=== PATIENT | female | born 1955 | race Caucasian/White ===

== ENCOUNTER 2018-01-31 14:19 | Outpatient (RCR) | payer SELFPAY | END 2018-02-06 | disposition home or self-care (01) | LOC: CR3 14:19 | PROVIDERS: ATTEND Registered Nurse | DX: Z29.8 Encounter for other specified prophylactic measures (principal) ==

== ENCOUNTER → 2021-01-27 | Outpatient (REF) ==
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
== END ==
LOC: OCC 10:20
PROVIDERS: ATTEND Family Medicine
DX: M54.9 Dorsalgia, unspecified (principal)
CPT/HCPCS: 72040; 72070; 72100; 73030

== ENCOUNTER → 2021-02-26 | Outpatient (REF) ==
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
== END ==
LOC: OCC 10:09
PROVIDERS: ATTEND Nurse Practitioner Family
DX: M25.552 Pain in left hip (principal); M25.551 Pain in right hip
CPT/HCPCS: 73523

== ENCOUNTER 2021-05-01 10:34 | Outpatient (RCR) | payer OTHER | END 2021-05-05 | disposition home or self-care (01) | PROVIDERS: ATTEND Family Medicine | DX: M54.2 Cervicalgia (principal); M54.50 Low back pain, unspecified; M54.6 Pain in thoracic spine; V89.2XXA Person injured in unspecified motor-vehicle accident, traffic, initial encounter ==

== ENCOUNTER 2021-05-20 11:30 | Outpatient (RCR) | payer OTHER | END 2021-06-04 16:05 | disposition home or self-care (01) | PROVIDERS: ATTEND Family Medicine | DX: M54.2 Cervicalgia (principal); M54.6 Pain in thoracic spine; M54.50 Low back pain, unspecified; V89.2XXA Person injured in unspecified motor-vehicle accident, traffic, initial encounter ==

== ENCOUNTER → 2021-06-19 | Outpatient (CLI) | payer OTHER ==
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
== END ==
LOC: RAD 08:45
PROVIDERS: ATTEND Physical Medicine & Rehabilitation
DX: M47.812 Spondylosis without myelopathy or radiculopathy, cervical region (principal); M50.223 Other cervical disc displacement at C6-C7 level; M48.02 Spinal stenosis, cervical region; M43.12 Spondylolisthesis, cervical region
CPT/HCPCS: 72141

== ENCOUNTER → 2021-06-20 | Outpatient (CLI) | payer BC ==
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
== END ==
LOC: RAD 08:24
PROVIDERS: ATTEND Urology
DX: R10.9 Unspecified abdominal pain (principal)
CPT/HCPCS: 74176

== ENCOUNTER → 2021-06-20 | Outpatient (CLI) | payer OTHER ==
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
== END ==
LOC: RAD 09:30
PROVIDERS: ATTEND Physical Medicine & Rehabilitation
DX: M47.814 Spondylosis without myelopathy or radiculopathy, thoracic region (principal); M47.816 Spondylosis without myelopathy or radiculopathy, lumbar region; M47.817 Spondylosis without myelopathy or radiculopathy, lumbosacral region; M51.26 Other intervertebral disc displacement, lumbar region; M51.27 Other intervertebral disc displacement, lumbosacral region; M48.061 Spinal stenosis, lumbar region without neurogenic claudication; M48.02 Spinal stenosis, cervical region
CPT/HCPCS: 72146; 72148

== ENCOUNTER 2022-12-02 10:00 | Outpatient (RCR) | payer MEDICARE | END 2022-12-05 | disposition home or self-care (01) | PROVIDERS: ATTEND Family Medicine | DX: R42 Dizziness and giddiness (principal) ==

== ENCOUNTER 2022-12-24 10:26 | Outpatient (RCR) | payer MEDICARE | END 2022-12-24 11:13 | disposition home or self-care (01) | PROVIDERS: ATTEND Family Medicine | DX: R42 Dizziness and giddiness (principal) ==